=== PATIENT | male | born 1990 | race Caucasian/White ===

== ENCOUNTER 2021-08-05 13:31 | Emergency (ER) | payer BC ==
[2021-08-05 14:00] VITALS: BP 133/89; PULSE 79
[2021-08-05] MEDS ORDERED: Colchicine 0.6 MG Tab PO ONE (14:12)
[2021-08-05] MEDS ORDERED: methylPREDNISolone Sodium Succinate 125 MG/2 ML SDV IVPUSH ONE (14:12)
[2021-08-05] MEDS ORDERED: Ketorolac 30 MG/ML SDV IVPUSH SCH (14:15)
[2021-08-05] MEDS ORDERED: predniSONE 20 MG Tab PO ONE (14:18)
--- NOTE | 2021-08-05 14:18 | EDM.PDOC ---
ED HPI GENERAL MEDICAL PROBLEM - General Chief Complaint: Lower Extremity Injury/Pain Stated Complaint: LEG PAIN Time Seen by Provider: 08/05/21 14:03 Source of Information: Reports: Patient History Limitations: Reports: No Limitations - History of Present Illness INITIAL COMMENTS - FREE TEXT/NARRATIVE: Note there are 2 charts in this patient. First one was completed by physician child center assistant student Layla Dean and she was fully supervised by me at the time. I agree with her documentation and findings. I did examine the patient with her to establish a firm diagnosis and treatment plan . Patient went to bed feeling fine. Awoke with severe right foot pain worsened by attempt to put on his work booton with pain dorsal aspect of his right foot. He went over to the [facility] where he was examined this morning including lab work and an x- ray of his right foot which proved to be normal. His D-dimer came back elevated at 0.213 which was concerning for possible DVT. Patient believes that he had COVID-19 a month ago but was never tested or proven positive. He is also just getting over a gastroenteritis which went through his household with nausea vomiting diarrhea with no further vomiting over the last 24 hours. He has therefore been somewhat volume depleted. Onset: Today, Sudden Onset Date: 08/05/21 Onset Time: 06:00 Duration: Hour(s): Location: Reports: Lower Extremity, Right (Pain right mid dorsal foot) Quality: Reports: Ache, Sharp, Stabbing, Throbbing Severity: Severe (Sharp and stabbing pain up attempted to fully flex his toes 9 out of 10 with attempt to walk on his foot. 2 out of 10 at rest) Improves with: Reports: Rest Worsens with: Reports: Movement Context: Reports: Other (Spontaneous development of right foot pain overnight). Denies: Activity (To flex his toes or bear weight. He is walking on his heel), Exercise, Lifting, Sick Contact, Trauma Associated Symptoms: Reports: No Other Symptoms Right Leg Pain Score (Numeric/FACES): 6 - Related Data Allergies Allergy/AdvReac Type Severity Reaction Status Date / Time No Known Allergies Allergy Verified 09/19/16 17:36 Home Meds: Home Meds Colchicine 0.6 mg PO Q1H #2 capsule 08/05/21 [Rx] Diclofenac Sodium [Voltaren] 75 mg PO BIDMEALS #10 tab.cr 08/05/21 [Rx] oxyCODONE HCl/Acetaminophen [Percocet 5-325 mg Tablet] 1 - 2 each PO Q4H PRN #15 tablet 08/05/21 [Rx] predniSONE [Prednisone] 20 mg PO ASDIRECTED #15 tablet 08/05/21 [Rx] Past Medical History HEENT History: Reports: Other (See Below) Other HEENT History: wisdom teeth extraction Social & Family History - Family History Cardiac: Reports: CAD, High Cholesterol, Hypertension, [place] - Caffeine Use Caffeine Use: Reports: Energy Drinks, Soda - Living Situation & Occupation Living situation: Reports: Occupation: Employed Review of Systems - Review of Systems Review Of Systems: See Below Constitutional: Denies: Chills, Diaphoresis, Fever, Weakness, Other Eyes: Reports: No Symptoms Ears: Reports: No Symptoms Nose: Reports: No Symptoms Mouth/Throat: Reports: No Symptoms Respiratory: Reports: No Symptoms Cardiovascular: Reports: No Symptoms GI/Abdominal: Reports: Other (Getting over viral gastroenteritis which included nausea vomiting diarrhea. No vomiting for the last 24 hours and no further diarrhea either. It is going through his whole family). Denies: Abdominal Pain Genitourinary: Reports: No Symptoms Musculoskeletal: Reports: No Symptoms Skin: Reports: No Symptoms Neurological: Reports: No Symptoms ED EXAM, GENERAL - Physical Exam Exam: See Below Exam Limited By: No Limitations General Appearance: Alert, WD/WN, No Apparent Distress, Other (Temperature is 36.7 degrees. Heart rate 79 and sinus. Respiratory to 20 with O2 sats of 99% room air. BP is 133/89) Eye Exam: Bilateral Eye: Normal Inspection (No blepharal pallor or scleral icterus.), PERRL Throat/Mouth: Normal Inspection, Normal Lips, Normal Teeth, Normal Voice, Other Head: Atraumatic, Normocephalic (Tongue is mildly coated and appears to be volume mildly volume depleted) Neck: Normal Inspection, Supple, Non-Tender, Full Range of Motion. No: Lymphadenopathy (L), Lymphadenopathy (R) Respiratory/Chest: No Respiratory Distress, Lungs Clear, Normal Breath Sounds, No Accessory Muscle Use, Chest Non-Tender Cardiovascular: Normal Peripheral Pulses, Regular Rate, Rhythm, No Edema, No Gallop, No JVD, No Rub Peripheral Pulses: 3+: Carotid (L), Carotid (R), Posterior Tibial (L), Posterior Tibial (R), Dorsalis Pedis (L), Dorsalis Pedis (R) GI/Abdominal: Normal Bowel Sounds, Non-Tender, No Organomegaly, No Distention. No: Guarding, Rigid, Rebound Extremities: Other (Examination of his right foot reveals diffuse faint erythema dorsal midfoot which is the site of his pain. There is slight increased warmth to palpation with dorsal fingers. Any attempt to flex his toes or even extend his toes makes the pain markedly worse. He cannot fully weight-bear. He is wal) Neurological: Alert, Oriented, CN II-XII Intact, Normal Cognition. No: Normal Gait (1 walking on his heel right foot) Psychiatric: Normal Affect, Normal Mood Skin Exam: Warm, Dry, Intact, Erythema (Still aspect right foot with increased warmth localized to this area) Course - Vital Signs Last Recorded V/S: Last Vital Signs Temp 36.7 C 08/05/21 13:59 Pulse 79 08/05/21 13:59 Resp 20 08/05/21 13:59 BP 133/89 08/05/21 13:59 Pulse Ox 99 08/05/21 13:59 - Orders/Labs/Meds Meds: Medications Discontinued Medications Generic Name Dose Route Start Last Admin Trade Name Freq PRN Reason Stop Dose Admin Colchicine 0.6 mg 08/05/21 14:12 08/05/21 15:01 Colchicine 0.6 Mg Tab PO 08/05/21 14:13 0.6 mg ONETIME ONE Administration Ketorolac Tromethamine 30 mg 08/05/21 14:15 Ketorolac 30 Mg/Ml Sdv IVPUSH ONETIME YANI Methylprednisolone Sodium Succinate 125 mg 08/05/21 14:12 08/05/21 15:01 Methylprednisolone Sodium Succinate 125 Mg/2 Ml Sdv IVPUSH 08/05/21 14:13 Not Given ONETIME ONE Ondansetron HCl 4 mg 08/05/21 14:19 08/05/21 14:58 Ondansetron 4 Mg Tab.Dis PO 08/05/21 14:20 4 mg ONETIME ONE Administration Oxycodone/Acetaminophen 1 tab 08/05/21 14:19 08/05/21 15:00 Acetaminophen/Oxycodone 325-5 Mg Tab PO 08/05/21 14:20 1 tab ONETIME ONE Administration Prednisone 30 mg 08/05/21 14:18 08/05/21 14:59 Prednisone 20 Mg Tab PO 08/05/21 14:19 30 mg ONETIME ONE Administration - Radiology Interpretation Free Text/Narrative:: 31-year-old male presents to the ED for evaluation of right foot pain. Patient states he went to bed feeling fine and woke with severe right dorsal foot pain and inability to put on his work boot. He is hobbled and is currently walking on his right heel. He was seen at the [facility] this morning where he had an x-ray of his right foot which proved to be normal. He had full labs carried out which most of which were provided to us except for the uric acid level. Patient has no history of gout but on examination he has erythema and pain well localized to the mid dorsal right foot compatible with acute gouty arthritis. No further investigations were deemed necessary. I believe his slightly elevated D-dimer is secondary to the inflammatory response due to gout. There is no clinical evidence of DVT in the right lower extremity. No pain on full palpation of the entire dorsal aspect of his foot and no swelling behind his knee or upper thigh. O2 sats are 99% on room air. Plan he will be treated with colchicine 0.6 mg now and then plan will be to give him 1 tablet every hour for 3 consecutive hours. Initial dose of steroid prednisone 30 mg will be given by mouth now as well. Plan will be to discharge him on Voltaren 75 mg twice daily for 5 days. Prednisone 20 mg twice daily for 5 days then once daily in the morning for another 5 days. Percocet tabs 5/325 mg strength 1 tablet every 4 hours as necessary for pain relief for the next couple of days 12 tablets provided. He is to expect marked improvement by 70% in the next 24 hours and 90% in the next 48 hours otherwise he is to be reviewed. - Re-Assessments/Exams Free Text/Narrative Re-Assessment/Exam: 08/05/21 14:36 chest x-ray reveals the heart size and mediastinum to be within normal limits. Lungs are clear with no acute parenchymal changes. Bony structures appear to be within normal limits for the patient's age. No evidence of Covid pneumonia. Chest x-ray was ordered by PA student --Layla Dean. Departure - Departure Time of Disposition: 15:40 Disposition: Home, Self-Care 01 Condition: Fair Clinical Impression: Gout attack Qualifiers: Gout site: foot Encounter type: initial encounter Laterality: right - Discharge Information *PRESCRIPTION DRUG MONITORING PROGRAM REVIEWED*: Not Applicable *COPY OF PRESCRIPTION DRUG MONITORING REPORT IN PATIENT SARA: Not Applicable Prescriptions: Colchicine 0.6 mg PO Q1H #2 capsule oxyCODONE HCl/Acetaminophen [Percocet 5-325 mg Tablet] 1 - 2 each PO Q4H PRN #15 tablet PRN Reason: pain relief. predniSONE [Prednisone] 20 mg PO ASDIRECTED #15 tablet Diclofenac Sodium [Voltaren] 75 mg PO BIDMEALS #10 tab.cr Instructions: Low-Purine Eating Plan Referrals: Sharmin Miguel MD [Primary Care Provider] - Forms: ED Department Discharge Additional Instructions: This is an episode of gout. Following a purine diet will help avoid future flares. Consumption of beef, pork and steak in low to moderate amounts in encouraged. During a period of wellness, follow up with your PCP to have your uric acid levels evaluated. Go treatment will be colchicine tablets 0.6 mg repeated at 1600 hrs. and again at 1700 hrs. today. Need to take first dose of Voltaren 75 mg at suppertime and then twice daily with breakfast and supper for 4-1/2 more days. Prednisone 20 mg by mouth twice daily usually with breakfast and supper for 5 days and then 1 tablet in the morning only for another 5 days. Pain medication is Percocet tabs 5/325 mg strength 1 or 2 tablets every 4-6 hours as necessary for relief of pain. Of note inflammation in the foot should be around 70% better within 24 hours and 90% better within 48 hours. Uric acid was obtained at the clinic today but the results were not sent to us. You could inquire about what the value was. For your residual COVID-19 related symptoms, it make take 3-4 months to fully recover. Return to the ER for further assessment if your chest pain or shortness of breath get worse, or you experience any other potentially life-threatening symptoms.
[2021-08-05] MEDS ORDERED: Acetaminophen/oxyCODONE 325-5 MG Tab PO ONE (14:19)
[2021-08-05] MEDS ORDERED: Ondansetron 4 MG Tab.DIS PO ONE (14:19)
--- NOTE | 2021-08-05 14:27 | EDM.PDOC ---
<Layla Dean - Last Filed: 08/05/21 15:03> ED HPI GENERAL MEDICAL PROBLEM - General Chief Complaint: Lower Extremity Injury/Pain Stated Complaint: LEG PAIN Time Seen by Provider: 08/05/21 14:13 Source of Information: Reports: Patient History Limitations: Reports: No Limitations - History of Present Illness INITIAL COMMENTS - FREE TEXT/NARRATIVE: Mr. Parth Carrasco is a pleasant 31-year-old male who presents to the ER for evaluation of right foot pain. He was seen at the [facility] and referred here after an elevated D-Dimer. Parth reports his foot started to hurt suddenly this morning, when he was unable to put on his boot. He denies any recent trauma to his foot. Due to the cold, he has been sitting in his truck more than normal at work. He was presumed to be COVID + 1.5 months ago after other family member's tested positive and he was ill. Since then he has continue to fell "never 100% better", he frequently feels SOB and a "sharp", "tight" chest pain that does not radiate. He currently denies fever, wheezing, cough, and claudication. Additionally, he reports vomiting, diarrhea and chills that began Sunday. The vomiting subsided, but diarrhea continues. Sick contacts include his children who tested + for RSV. He is unvaccinated against COVID-19 and Influenza. Onset: Today, Sudden Duration: Hour(s): Location: Reports: Lower Extremity, Right Right Leg Pain Score (Numeric/FACES): 6 - Related Data Allergies Allergy/AdvReac Type Severity Reaction Status Date / Time No Known Allergies Allergy Verified 09/19/16 17:36 Home Meds: Home Meds Colchicine 0.6 mg PO Q1H #2 capsule 08/05/21 [Rx] Diclofenac Sodium [Voltaren] 75 mg PO BIDMEALS #10 tab.cr 08/05/21 [Rx] oxyCODONE HCl/Acetaminophen [Percocet 5-325 mg Tablet] 1 - 2 each PO Q4H PRN #15 tablet 08/05/21 [Rx] predniSONE [Prednisone] 20 mg PO ASDIRECTED #15 tablet 08/05/21 [Rx] Past Medical History HEENT History: Reports: Other (See Below) Other HEENT History: wisdom teeth extraction Social & Family History - Family History Cardiac: Reports: CAD, High Cholesterol, Hypertension, [place] - Caffeine Use Caffeine Use: Reports: Energy Drinks, Soda Review of Systems - Review of Systems Review Of Systems: Comprehensive ROS is negative, except as noted in HPI. Constitutional: Reports: No Symptoms Eyes: Reports: No Symptoms Ears: Reports: No Symptoms Nose: Reports: No Symptoms Mouth/Throat: Reports: No Symptoms Respiratory: Reports: Shortness of Breath. Denies: Wheezing, Cough Cardiovascular: Reports: Chest Pain ("Sharp"). Denies: Edema, Lightheadedness, Palpitations, Syncope GI/Abdominal: Reports: Diarrhea, Vomiting Genitourinary: Reports: No Symptoms Musculoskeletal: Reports: Foot Pain Skin: Reports: Erythema, Other (R foot warm) Neurological: Reports: No Symptoms Psychiatric: Reports: No Symptoms ED EXAM, GENERAL - Physical Exam Exam Limited By: No Limitations General Appearance: Alert, No Apparent Distress Nose: Normal Inspection Throat/Mouth: Normal Inspection Head: Atraumatic, Normocephalic Neck: Normal Inspection, Supple, Non-Tender Respiratory/Chest: No Respiratory Distress, Lungs Clear, Normal Breath Sounds Cardiovascular: Normal Peripheral Pulses, Regular Rate, Rhythm, No Edema, No JVD Extremities: Normal Capillary Refill, Redness (R Dorsal), Other (R dorsal warmth, decreased ROM. Reports heel walking. ) Neurological: Alert, Oriented, CN II-XII Intact Psychiatric: Normal Affect, Normal Mood Skin Exam: Warm, Dry, Intact, Other (2x2" area of errythema on bilteral calfs. Non-warm. Pt attributes to scratching. ) Departure - Departure Time of Disposition: 15:04 Disposition: Home, Self-Care 01 Condition: Good Clinical Impression: Gout attack Qualifiers: Gout site: foot Encounter type: initial encounter Laterality: right - Discharge Information Prescriptions: Colchicine 0.6 mg PO Q1H #2 capsule oxyCODONE HCl/Acetaminophen [Percocet 5-325 mg Tablet] 1 - 2 each PO Q4H PRN #15 tablet PRN Reason: pain relief. predniSONE [Prednisone] 20 mg PO ASDIRECTED #15 tablet Diclofenac Sodium [Voltaren] 75 mg PO BIDMEALS #10 tab.cr Instructions: Low-Purine Eating Plan Referrals: Sharmin Miguel MD [Primary Care Provider] - Forms: ED Department Discharge Additional Instructions: This is an episode of gout. Following a purine diet will help avoid future flares. Consumption of beef, pork and steak in low to moderate amounts in encouraged. During a period of wellness, follow up with your PCP to have your uric acid levels evaluated. Go treatment will be colchicine tablets 0.6 mg repeated at 1600 hrs. and again at 1700 hrs. today. Need to take first dose of Voltaren 75 mg at suppertime and then twice daily with breakfast and supper for 4-1/2 more days. Prednisone 20 mg by mouth twice daily usually with breakfast and supper for 5 days and then 1 tablet in the morning only for another 5 days. Pain medication is Percocet tabs 5/325 mg strength 1 or 2 tablets every 4-6 hours as necessary for relief of pain. Of note inflammation in the foot should be around 70% better within 24 hours and 90% better within 48 hours. Uric acid was obtained at the clinic today but the results were not sent to us. You could inquire about what the value was. For your residual COVID-19 related symptoms, it make take 3-4 months to fully recover. Return to the ER for further assessment if your chest pain or shortness of breath get worse, or you experience any other potentially life-threatening symptoms. <Christiano Soto - Last Filed: 08/10/21 09:10> ED HPI GENERAL MEDICAL PROBLEM - History of Present Illness Onset Date: 08/05/21 Onset Time: 06:00 (To bed feeling fine and awoke with pain) Quality: Reports: Ache, Sharp, Stabbing (Right with any movement of the foot and inability to put on his work boot toes particularly flexing the toes.), Throbbing Severity: Severe (8-9 out of 10 with movement.) Improves with: Reports: Rest Context: Reports: Activity, Other (Not weight-bear other than on his heel at this time) Associated Symptoms: Reports: No Other Symptoms Treatments DIRECTOR OF MIDWIFERY/STAFF MIDWIFE: Reports: Acetaminophen (With no relief) Past Medical History Gastrointestinal History: Reports: Other (See Below) (This getting over a gastroenteritis that has had for 3 days. Included nausea vomiting diarrhea) Social & Family History - Alcohol Use Alcohol Use History: Yes - Living Situation & Occupation Living situation: Reports: Occupation: Employed Review of Systems - Review of Systems Review Of Systems: See Below ED EXAM, GENERAL - Physical Exam Exam: See Below General Appearance: Other (Vital signs of temperature 36.7 degrees. Heart rate 79 sinus. Respiratory to 20 with O2 sats of 99% room air. BP 1 3389.) Course - Vital Signs Last Recorded V/S: Last Vital Signs Temp 36.7 C 08/05/21 13:59 Pulse 79 08/05/21 13:59 Resp 20 08/05/21 13:59 BP 133/89 08/05/21 13:59 Pulse Ox 99 08/05/21 13:59 - Orders/Labs/Meds Meds: Medications Discontinued Medications Generic Name Dose Route Start Last Admin Trade Name Freq PRN Reason Stop Dose Admin Colchicine 0.6 mg 08/05/21 14:12 08/05/21 15:01 Colchicine 0.6 Mg Tab PO 08/05/21 14:13 0.6 mg ONETIME ONE Administration Ketorolac Tromethamine 30 mg 08/05/21 14:15 Ketorolac 30 Mg/Ml Sdv IVPUSH ONETIME YANI Methylprednisolone Sodium Succinate 125 mg 08/05/21 14:12 08/05/21 15:01 Methylprednisolone Sodium Succinate 125 Mg/2 Ml Sdv IVPUSH 08/05/21 14:13 Not Given ONETIME ONE Ondansetron HCl 4 mg 08/05/21 14:19 08/05/21 14:58 Ondansetron 4 Mg Tab.Dis PO 08/05/21 14:20 4 mg ONETIME ONE Administration Oxycodone/Acetaminophen 1 tab 08/05/21 14:19 08/05/21 15:00 Acetaminophen/Oxycodone 325-5 Mg Tab PO 08/05/21 14:20 1 tab ONETIME ONE Administration Prednisone 30 mg 08/05/21 14:18 08/05/21 14:59 Prednisone 20 Mg Tab PO 08/05/21 14:19 30 mg ONETIME ONE Administration - Radiology Interpretation Free Text/Narrative:: Of note I did review physician medical assistant instructor Layla Perry notes and agree with her evaluation and documentation. I also did see this patient in consultation myself in the presence of the physician medical assistant instructor and in fact he does have elsy dence of acute gouty arthritis in the dorsal aspect of his right foot. He went to bed feeling fine and awoke with inability to put on his boot due to severe pain in his mid right forefoot and redness and erythema no increased warmth on palpation of the dorsal right foot. X-rays of the right foot were performed at [facility] earlier today. Uric acid was also performed as were other labs which were all normal except the uric acid was never sent over to us. Patient be treated with prednisone 20 mg twice daily for 5 days then once daily in the morning for another 5 days. Voltaren 75 mg twice daily breakfast and supper for 5 days. Percocet tabs 5/325 mg strength 1 or 2 every 4-6 hours necessary for pain relief for the next day or 2. 14 tablets were provided. He was given colchicine first dose in the ED 0.6 mg and will repeat second and third doses at 1600 hrs. and 1700 hrs. respectively today. He is to anticipate 70% improvement in his pain tomorrow and 90% the next day. Tentative return to work on Sunday as planned. A purine diet was suggested and provided to him. Departure - Discharge Information *PRESCRIPTION DRUG MONITORING PROGRAM REVIEWED*: Not Applicable *COPY OF PRESCRIPTION DRUG MONITORING REPORT IN PATIENT SARA: Not Applicable
--- NOTE | 2021-08-05 15:14 | CR ---
Chest: Frontal view of the chest was obtained. Comparison: Prior chest x-ray of 09/19/16. Heart size and mediastinum are within normal limits. Lungs are clear with no acute parenchymal change. Bony structures appear within normal limits for the patient's age. Impression: 1. Nothing acute is seen on frontal chest x-ray. Diagnostic code #1
== END 2021-08-05 15:46 | disposition home or self-care (01) ==
LOC: JD.ED 13:31
DX: M10.9 Gout, unspecified (principal)
CPT/HCPCS: 71045; 99283; A9270; J7512